=== PATIENT | female | born 2000 ===

== ENCOUNTER 2024-02-11 10:18 | Day surgery (SDC) | payer OTHER ==
[2024-02-11 11:46] VITALS: BMI 23.0
[2024-02-11] MEDS ORDERED: hydrALAZINE 20 MG/ML VIAL SLOW IVP PRN (12:28)
== END 2024-02-11 13:10 | disposition home or self-care (01) ==
LOC: CSHLD/OP 10:18
PROVIDERS: ATTEND Family Medicine
DX: Z36.4 Encounter for antenatal screening for fetal growth retardation (principal); O99.012 Anemia complicating pregnancy, second trimester; O35.1 Maternal care for (suspected) chromosomal abnormality in fetus; Z79.899 Other long term (current) drug therapy; Z98.890 Other specified postprocedural states; Z3A.26 26 weeks gestation of pregnancy
CPT/HCPCS: 59025; 76819